=== PATIENT | female | born 1945 | race Caucasian/White ===

== ENCOUNTER 2017-05-20 14:07 | Inpatient (IN) | payer MEDICARE, OTHER ==
[~2017-05-20] VITALS: Ht 165.1 cm; Wt 67.4 kg
--- NOTE | ~2017-05-20 | TH ---
Unit #: [id number] #: [id number] Patient: MAINE MOREL [id number] [address] [address] [id number] I MR#: [id number] NAME: MAINE MOREL. : 1945 SEX: F STUDY DATE/TIME: 05/23/2017 UNIT: C3A PCU ROOM: [facility] STUDY DESCRIPTION: Lexiscan stress test - Nuclear Attending Physician: Kassandra Woods M.D. Primary Care Physician: Kassandra Woods M.D. CARDIOLOGY REPORT PROCEDURE PERFORMED Lexiscan Cardiolite stress test - Nuclear portion. PROCEDURE Using technetium 99m-labeled Cardiolite, rest and stress SPECT images were obtained. Multiple SPECT images were obtained in various views, including horizontal and vertical long axis and short axis views of the left ventricle. Images were obtained by gated SPECT method. The patient was administered 11.09 mCi of Cardiolite at rest. The patient was administered 33.1 mCi of Cardiolite after Lexiscan infusion was completed. On the stress images, there is mildly decreased tracer uptake activity in the anteroapical wall. The rest images show a smaller area of mildly decreased tracer uptake activity anteroapically. Comparing the rest and stress images, a very small area of possible stress-induced ischemia involving the anteroapical wall of the left ventricle cannot be ruled out. The left ventricular ejection fraction is calculated to be 45%. There is mild global hypokinesis seen. The left ventricular cavity is mildly dilated both at rest and post stress. CONCLUSION 1. An extremely small area of possible stress-induced ischemia involving the anteroapical wall of the left ventricle cannot be ruled out. 2. The left ventricular ejection fraction is calculated to be 45%. 3. There is mild global hypokinesis seen. 4. The left ventricular cavity is mildly dilated both at rest and post stress. 5. Mildly abnormal Lexiscan Cardiolite stress test. Clinical correlation is requested. Dictated by.Sandy Rockwell TD: 05/23/2017 16:20 JOB #: [id number] Unit #: [id number] #: [id number] Patient: MAINE MOREL CARDIOLOGY REPORT Page 1 of 1 X Tracy Lewis MD <ELECTRONICALLY SIGNED> 07/10/17 1524 CARDIOLOGY REPORT
--- NOTE | ~2017-05-20 | EKG ---
PATIENT: MAINE MOREL UNIT #: [id number] Ventricular Rate: 94 BPM Atrial Rate: 94 BPM P-R Interval: 166 ms QRS Duration: 98 ms Q-T Interval: 394 ms QTC Calculation(Bezet): 492 ms P Eddy: 68 degrees Calculated R Eddy: 53 degrees Calculated T Eddy: 59 degrees Diagnosis Line: Normal sinus rhythm Diagnosis Line: Prolonged QT Diagnosis Line: Abnormal ECG Diagnosis Line: When compared with ECG of 06-JAN-2016 16:14, Diagnosis Line: Premature atrial complexes are no longer Present Diagnosis Line: Vent. rate has increased BY 32 BPM Diagnosis Line: Confirmed by LEENA CHAVES MD ([id number]) on 05/21/2017 Diagnosis Line: 7:38:00 PM INTERPRETING MD: ANDIE BARRIENTOS
--- NOTE | ~2017-05-20 | CO ---
Unit #: [id number] #: [id number] Patient: MAINE MOREL [id number] [address] [place], [place] [address] [id number] I MR#: [id number] NAME: MAINE MOREL. ROOM: 327 Age: 71 Sex: F Admission Date: 05/20/2017 : 1945 Attending Physician: Kassandra Woods M.D. Primary Care Physician: Kassandra Woods M.D. Consultation Date: 05/22/2017 CONSULTATION REPORT REASON FOR CONSULT Hypoxia. HISTORY OF PRESENT ILLNESS This is a very pleasant, 71-year-old, female with past medical history significant for alcohol abuse, COPD, hypertension, and diabetes who presented to the emergency room with chest pain and shortness of breath for a few days. Also, she admitted a cough that was nonproductive. Patient stated that she uses several pillows when she sleeps at night and her shortness of breath, also, on exertion even for short distances. PAST MEDICAL HISTORY 1. Hypertension. 2. Diabetes. PAST SURGICAL HISTORY None. HOME MEDICATIONS 1. Levemir. 2. Cozaar. 3. Paxil. ALLERGIES No known drug allergies. SOCIAL HISTORY Patient admits to drinking on a daily basis with 2-3 beers and 2-3 shots of vodka. She is an active smoker with at least one pack per day. No history of drug abuse. FAMILY HISTORY Unremarkable. REVIEW OF SYSTEMS Twelve-point review of systems were obtained and were negative, except for what was mentioned in the HPI. PHYSICAL EXAMINATION GENERAL: The patient is in no acute distress. VITAL SIGNS: Blood pressure 156/68, respiratory rate 17, and O2 saturation 98% on 2 liters nasal cannula. HEENT: Atraumatic and normocephalic. PERRLA. EOMI. NECK: Supple. No JVD. No lymphadenopathy. Unit #: [id number] #: [id number] Patient: MAINE MOREL CHEST: Bilateral crackles and wheezing. HEART: S1 and S2. No murmurs, gallops, or rubs. ABDOMEN: Soft and nontender. Bowel sounds are positive. No hepatosplenomegaly. EXTREMITIES: Trace edema. SKIN: No rashes. PEDIATRIC NP: Awake, alert, and oriented x3. No focal motor/sensory deficit. DIAGNOSTIC STUDIES LABS: Creatinine 0.7, sodium 136, and CO2 35. White blood count 9.2 and hemoglobin 14.6. IMAGING: Tests are reviewed and (1) . ASSESSMENT 1. Acute hypoxic respiratory failure. 2. Acute exacerbation of chronic obstructive pulmonary disease. 3. Acute systolic congestive heart failure. 4. Hypertension. 5. Diabetes. PLAN 1. Will titrate oxygen down to baseline, which is room air as tolerated. 2. Will continue IV Lasix and monitor urine output and creatinine very closely. 3. Will follow echo result. 4. Patient may need a stress test. 5. IV steroids and bronchodilator. 6. Will discontinue antibiotics and watch closely. 7. DVT prophylaxis. I would like to thank Dr. Mendez for allowing me to be part of this patient's care. Dictated by... Sandy Zapien TD: 05/23/2017 11:50 JOB #: [id number] CONSULTATION REPORT Page 1 of 1 X CANDI NAILS MD CONSULTATION REPORT
--- NOTE | ~2017-05-20 | CR63 ---
[facility] A Service of [facility] & [facility] RADIOLOGY TEXT RESULTS PATIENT: MAINE MOREL LOCATION: [facility] 327- : 43 UNIT #: [id number] AGE: [address]: Kassandra Woods MD SEX: F ORDER DR: [id number] [facility] [address] [place], [place] [address] [id number] I MR#: [id number] Acc #: [id number] NAME: MAINE MOREL. : 1945 SEX: F STUDY DATE/TIME: 05/20/2017 15:51 UNIT: [address] ROOM: [facility] STUDY DESCRIPTION: CR Chest 2 View Attending Physician: Kassandra Woods M.D. Ordering Physician: Ed Gabriel Pena M.D. Primary Care Physician: Kassandra Woods M.D. MEDICAL IMAGING REPORT This report is preliminary unless electronic signature is present EXAM PA and lateral chest. HISTORY Cough and congestion and shortness of air for 4 days. FINDINGS Two views of the chest demonstrate mild cardiac enlargement. Pulmonary vascularity is normal. Mild linear atelectasis or scarring in the left base. Small incidental calcified granuloma lateral left midlung. No airspace infiltrates or effusions. IMPRESSION 1. Kjcp-ea-covaavht cardiac enlargement. 2. No evidence of active disease. Dictated by... Juan Phoenix M.D. THIS IS AN ELECTRONICALLY VERIFIED REPORT Juan Phoenix M.D. at 05/21/2017 3:13 PM AKILAH/margarita TD: 05/20/2017 18:16 JOB #: [id number] MEDICAL IMAGING REPORT Page 1 of 1 COPY
--- NOTE | ~2017-05-20 | ST ---
Unit #: [id number] #: [id number] Patient: MAINE MOREL [id number] [facility]. [place], [place] [address] [id number] I MR#: [id number] NAME: MAINE MOREL. : 1945 SEX: F STUDY DATE/TIME: 05/23/2017 UNIT: C3A PCU ROOM: [facility] STUDY DESCRIPTION: Lexiscan Cardiolite stress Attending Physician: Kassandra Woods M.D. Primary Care Physician: Kassandra Woods M.D. CARDIOLOGY REPORT EXAM Lexiscan Cardiolite stress test. FINDINGS Baseline EKG: Normal sinus rhythm with ventricular rate 75 beats per minute, left atrial abnormality, Q wave in V1, poor R wave progression, and nonspecific ST-T wave abnormalities in lateral leads. Lexiscan is a 4-minute test with Lexiscan being injected within the first minute followed by Cardiolite. EKG during the test was equivocal to baseline and continued to show some nonspecific ST-T wave abnormalities in inferior leads. a rare premature atrial contraction. Maximum heart rate response was 97 beats per minute with maximum blood pressure response 135/62 mmHg. Patient had no complaints of chest pain, palpitations, or dizziness. Had increased shortness of breath and fatigue, which resolved in recovery phase. Cardiolite was injected after Lexiscan within the first minute of the test. Radionuclide test pending. Please correlate with nuclear images. Dictated by... Benita Shah A.P.R.N. for Sandy Barrios/vickey TD: 05/23/2017 11:34 JOB #: [id number] Unit #: [id number] #: [id number] Patient: MAINE MOREL CARDIOLOGY REPORT Page 1 of 1 X Benita Shah APRN CARDIOLOGY REPORT
--- NOTE | ~2017-05-20 | DS ---
Unit #: [id number] #: [id number] Patient: LIZETT CAZARES [id number] [address] [address] [id number] I MR#: [id number] NAME: LIZETT CAZARES. ROOM: 327 Age: 71 Sex: F Admission Date: 05/20/2017 : 1945 Discharge Date: 05/28/2017 Attending Physician: Kassandra Woods M.D. Primary Care Physician: Kassandra Woods M.D. DISCHARGE SUMMARY FINAL DIAGNOSES 1. Acute hypoxic respiratory failure. 2. Acute chronic obstructive pulmonary disease exacerbation. 3. Acute systolic congestive heart failure with ejection fraction of 20%. 4. Severe pulmonary hypertension. 5. Status post cath, which shows normal coronaries. 6. Severe mitral regurgitation. 7. Nonischemic cardiomyopathy. 8. Hypertension. 9. Hyperlipidemia. 10. Diabetes mellitus type 2. 11. Alcohol abuse. 12. Tobacco abuse. DISCHARGE MEDICATIONS 1. Nebulizer treatment with albuterol and ipratropium q.i.d. 2. Prednisone tapering dose. 3. Tylenol 650 q.4 p.r.n. 4. Paxil 40 mg daily. 5. Glucophage 1000 mg b.i.d. 6. Atorvastatin 80 mg nightly. 7. Nicotine patch 40 mg daily. 8. Lopressor 50 mg twice a day. 9. Furosemide 40 mg twice a day. 10. Losartan 50 mg twice a day. 11. Lantus 45 units subcutaneous daily. 12. Aspirin 81 mg daily. 13. Imdur ER 60 mg daily. 14. Folic acid 1 mg daily. 15. Thiamine 100 mg daily. CONSULTATIONS DURING HOSPITALIZATION 1. Dr. Toscano and Dr. Lewis from cardiology services. 2. Dr. Shore from pulmonary services. PROCEDURE PERFORMED DURING HOSPITALIZATION Cardiac cath which showed normal coronaries with ejection fraction of 20% and severe pulmonary hypertension with severe mitral regurgitation. DIAGNOSTIC STUDIES LABORATORY: Lab workup on discharge: Glucose is 257, sodium 145, potassium 4, chloride 95, BUN 29, creatinine 0.9. BNP 204. CBC shows WBC 11.7, hemoglobin 13.3, hematocrit 41.3, and platelet count 290,000. Unit #: [id number] #: [id number] Patient: LIZETT CAZARES HOSPITAL COURSE Ms. Lizett Cazares is a 71-year-old female, who was admitted to the hospital on May 21 by my colleague, Dr. Mendez, with shortness of breath. Patient was diagnosed with acute new-onset congestive heart failure and acute COPD exacerbation. Patient was treated with IV Solu-Medrol and Mini neb treatment. Patient does have hypoxic respiratory failure. Home O2 is being arranged. That needs to be continued as outpatient. Patient was seen by Dr. Gonzalez and Dr. Miguel Shore during hospitalization. Patient's acute congestive heart failure was treated with IV diuretics. Dr. Toscano was consulted. Patient had a cardiac cath done and findings are as above. Patient is very high risk for mitral valve repair or replacement because of her severe pulmonary hypertension, also because of severe COPD. Cardiac medications were adjusted as per Dr. Toscano's recommendation. Tobacco cessation counseling has been done. Alcohol cessation counseling has been done. PHYSICAL EXAMINATION On discharge: VITAL SIGNS: Blood pressure 177/62, respiratory rate 20, pulse rate is 63, and temperature is 98. HEENT: Head is normocephalic. CHEST: Clear to auscultate. Decreased breath sounds in the bases. CARDIOVASCULAR: S1, S2 positive. Murmur is heard. ABDOMEN: Soft. EXTREMITIES: Edema is present. DISCHARGE INSTRUCTIONS 1. The patient is being discharged home in stable condition. 2. Follow primary care provider in one week. 3. CBC and BMP in one week. 4. Followup with Dr. Toscano on July 10, 2017 at 2:15 p.m. 5. Tobacco cessation counseling done. 6. An 1800 mL fluid restriction. Dictated by... Sandy Saenz TD: 05/30/2017 09:29 JOB #: [id number] DISCHARGE SUMMARY Page 1 of 1 X Carmela Rojas MD X DISCHARGE SUMMARY
--- NOTE | ~2017-05-20 | HP ---
Unit #: [id number] #: [id number] Patient: MAINE MOREL [id number] [address] [place], [place] [address] [id number] I MR#: [id number] NAME: MAINE MOREL. ROOM: 327 Age: 71 Sex: F Admission Date: 05/20/2017 : 1945 Attending Physician: Kassandra Woods M.D. Primary Care Physician: Kassandra Woods M.D. HISTORY AND PHYSICAL ADMISSION DIAGNOSES 1. Shortness of air and dyspnea. 2. Questionable new-onset of acute congestive heart failure. 3. Chronic obstructive pulmonary disease. 4. Alcohol abuse. 5. Hypertension. 6. Insulin-dependent diabetes. HISTORY OF PRESENT ILLNESS Ms. Morel is a 71-year-old female, patient of Dr. Kassandra Woods, who presented to Dr. Woods's office yesterday with complaints of shortness of air and dyspnea. She was directly admitted. She denies any chest pain, denies any fever or chills, and denies any nausea, vomiting, diarrhea, or abdominal pain. She tells me that she cannot sleep flat. She uses several pillows to sit up during the night. (1) any nocturnal dyspnea or orthopnea. Otherwise, denies any syncopal episode. So a 12-point review of systems on this patient is basically negative except as above. PAST MEDICAL HISTORY 1. Hypertension. 2. Insulin-dependent diabetes. PAST SURGICAL HISTORY None. HOME MEDICATIONS 1. Levemir. 2. Cozaar. 3. Paxil. ALLERGIES No known drug allergies. SOCIAL HISTORY She admits drinking on a daily basis with two or three beers and two or three shots of vodka. She also is an active smoker and has been an active smoker all her life. Denies any illicit drug use. FAMILY HISTORY Unremarkable. PHYSICAL EXAMINATION GENERAL: Patient is a 71-year-old female in no acute distress. Unit #: [id number] #: [id number] Patient: MAINE MOREL VITAL SIGNS: Blood pressure 168/86, heart rate 74, respirations 20, and temperature 98.3. HEENT: Head is atraumatic. Pupils equal, round, and reactive to light and accommodation. Extraocular muscles intact. Oropharynx clear. NECK: Supple. No mass, no JVD, and no bruits. CHEST: Diminished bilaterally with expiratory wheezing. CARDIOVASCULAR: S1 and S2. No murmurs. ABDOMEN: Soft, nontender, and nondistended. LOWER EXTREMITIES: Without any significant cyanosis, clubbing, or edema. NEUROLOGIC: Grossly intact without any focal deficits. DIAGNOSTIC STUDIES LABORATORY: Chemistry significant for blood glucose of 273 and ALT of 42. White count 9.2 and hemoglobin and hematocrit 14 and 44. IMAGING: Chest x-ray shows cardiomegaly. No infiltrates. ASSESSMENT AND PLAN 1. Shortness of air and dyspnea likely congestive heart failure and questionable dilated alcohol-induced cardiomyopathy. Will start on low-dose of Lasix 20 mg IV daily, check the 2D echocardiogram, check cardiac enzymes, and consult Cardiology. 2. Chronic obstructive pulmonary disease with wheezing. Start on DuoNebs. Counseled on the importance of quitting tobacco. Ask Pulmonary to see. 3. Hypertension. Resume home medications. Again, added Lasix. 4. Insulin-dependent diabetes. Continue Levemir at medium sliding scale. Check hemoglobin A1c. 5. Gastrointestinal and deep venous thrombosis prophylaxis. Start on Protonix and Lovenox. 1. Dictated by Al Mendez M.D. OC/soledad TD: 05/21/2017 22:02 JOB #: [id number] HISTORY AND PHYSICAL Page 1 of 1 X Al Mendez MD X HISTORY AND PHYSICAL
--- NOTE | ~2017-05-20 | EKG ---
PATIENT: MAINE MOREL UNIT #: [id number] Ventricular Rate: 59 BPM Atrial Rate: 59 BPM P-R Interval: 152 ms QRS Duration: 102 ms Q-T Interval: 450 ms QTC Calculation(Bezet): 445 ms P [place]: 57 degrees Calculated R [place]: 64 degrees Calculated T [place]: 86 degrees Diagnosis Line: Sinus bradycardia Diagnosis Line: Otherwise normal ECG Diagnosis Line: When compared with ECG of 20-MAY-2017 14:28, Diagnosis Line: Vent. rate has decreased BY 35 BPM Diagnosis Line: Confirmed by LEENA CHAVES MD ([id number]) on 05/27/2017 Diagnosis Line: 11:36:35 PM INTERPRETING MD: ANDIE BARRIENTOS
--- NOTE | ~2017-05-20 | CO ---
Unit #: [id number] #: [id number] Patient: MAINE MOREL [id number] [address] [place], [place] [address] [id number] I MR#: [id number] NAME: MAINE MOREL. ROOM: 327 Age: 71 Sex: F Admission Date: 05/20/2017 : 1945 Attending Physician: Kassandra Woods M.D. Primary Care Physician: Kassandra Woods M.D. Consultation Date: 05/22/2017 CONSULTATION REPORT REASON FOR CONSULTATION Dyspnea. HISTORY OF PRESENT ILLNESS This is a 71-year-old white female, who went to her primary care physician's office because of shortness of breath and dyspnea. She says dyspnea has been ongoing for the past 1-month, but worsened in the last 2 weeks. Dyspnea occurs at rest and is worse on exertion. She has no report of chest pain. Has occasional palpitations, but no dizziness, syncope, or near syncope. She was admitted for further evaluation. From a cardiac standpoint, the patient has no prior cardiac history or workup. She has risk factors for ischemic heart disease that includes hypertension, insulin-dependent diabetes mellitus, and nicotine abuse. She also says she drinks at least 4 beers a night. Chest x-ray was absent of congestive heart failure. Troponin mildly elevated at 0.04, which is nondiagnostic. PAST MEDICAL HISTORY 1. Hypertension. 2. Insulin-dependent diabetes mellitus, type 2. 3. Nicotine abuse. 4. EtOH abuse. PAST SURGICAL HISTORY No previous surgeries. SOCIAL HISTORY The patient is . She smokes half a pack of cigarettes daily since she was in her 30s. She admits to drinking at least 4 beers a night. She denies illicit drug use. FAMILY HISTORY Negative for coronary artery disease. ALLERGIES No known drug allergies. HOME MEDICATIONS Paxil 40 mg daily, Glucophage 1000 mg b.i.d., Cozaar 50 mg daily, Lantus 35 units subcu daily. REVIEW OF SYSTEMS CONSTITUTIONAL: Negative for fever or chills. Has no weight gain or weight loss. Unit #: [id number] #: [id number] Patient: MAINE MOREL HEENT: No headache, hearing or vision changes, or difficulty with swallowing. No dizziness. CARDIOVASCULAR: Has no symptoms of angina. Reports occasional palpitations. Positive for paroxysmal nocturnal dyspnea and orthopnea. No syncope or near syncope. RESPIRATORY: Positive for dyspnea at rest and on exertion. Has occasional nonproductive cough. No hemoptysis. GASTROINTESTINAL: No abdominal pain, nausea, or vomiting. No constipation or melena. EXTREMITIES: Negative for lower extremity edema. PHYSICAL EXAMINATION VITAL SIGNS: Blood pressure is 156/70, heart rate 77, and temperature 97.9. BMI of 25. GENERAL: This is a pleasant 71-year-old white female, who is in no acute respiratory distress. NEUROLOGIC: She is awake, alert, and oriented. There are no focal weaknesses. NECK: Trachea is midline. No thyromegaly or lymphadenopathy. No jugular venous distention. HEART: S1 and S2. Heart sounds are normal. No murmurs. No rubs or clicks. Regular rate and rhythm. LUNGS: With diminished breath sounds in both lungs without rales, rhonchi, or wheezing. ABDOMEN: Soft and nontender with bowel sounds are present. EXTREMITIES: Without leg edema. SKIN: Warm and dry. DIAGNOSTIC STUDIES LABORATORY RESULTS: Glucose 233, BUN 16, creatinine 0.7, sodium 141, potassium 3.4. Troponin 0.03 and 0.05. White count 9.2, hemoglobin 14.6, hematocrit 44.4, and platelet count is 237. IMAGING STUDIES: Chest x-ray shows mild cardiomegaly, but no active disease. CARDIOVASCULAR STUDIES: EKG shows normal sinus rhythm with no acute ischemic changes. IMPRESSION 1. Acute exacerbation of bronchitis. 2. Acute chronic obstructive pulmonary disease. 3. Hypertension. 4. Diabetes mellitus, type 2. 5. Ethyl alcohol and nicotine abuse. PLAN 1. Agree with echocardiogram to evaluate left ventricular systolic function. 2. Has been started on a short course of steroids and antibiotics for COPD exacerbation. 3. Because of multiple risk factors for ischemic heart disease, we would advise the patient to undergo Lexiscan Cardiolite stress test in a.m. to rule out coronary artery disease. 4. Also I have asked the patient to stop nicotine and alcohol use. Thank you for allowing us to assist with this patient's care. Unit #: [id number] #: [id number] Patient: MARIA TERESAMAINE Karol Dictated by... Austen Novoa A.P.R.N. for Sandy Stark/eva TD: 05/29/2017 05:54 JOB #: [id number] CC: Kassandra Woods M.D. CONSULTATION REPORT Page 1 of 1 X Austen Novoa APRN X CONSULTATION REPORT
--- NOTE | ~2017-05-20 | US6 ---
[facility] A Service of [facility] & [facility] RADIOLOGY TEXT RESULTS PATIENT: MAINE MOREL LOCATION: [facility] 327-01 : 43 UNIT #: [id number] AGE: [address]: Kassandra Woods MD SEX: F ORDER DR: [id number] [facility] [address]. [place], [place] [address] [id number] I MR#: [id number] #: [id number] NAME: MAINE MOREL. : 1945 SEX: F STUDY DATE/TIME: 05/22/2017 7:32 UNIT: [address] ROOM: [facility] STUDY DESCRIPTION: US Abdominal Limited Attending Physician: Kassandra Woods M.D. Ordering Physician: Kassandra Woods M.D. Primary Care Physician: Kassandra Woods M.D. MEDICAL IMAGING REPORT This report is preliminary unless electronic signature is present EXAM Right upper quadrant abdominal ultrasound INDICATION Ascites PROCEDURE Ríos-scale imaging of the abdominal quadrants. COMPARISON None FINDINGS No ascites. Increased liver echotexture. IMPRESSION 1. No ascites. 2. Increased liver echotexture in keeping with steatosis. Dictated by... Shaan Schmitz M.D. THIS IS AN ELECTRONICALLY VERIFIED REPORT Shaan Schmitz M.D. at 05/26/2017 8:18 AM Lance TD: 05/22/2017 08:50 JOB #: [id number] MEDICAL IMAGING REPORT Page 1 of 1 COPY
[~2017-05-20 14:07] MED LIST: ALBUTEROL20 ml INH; ALLEGRA180 MG PO; ATORVASTATIN CA10 MG PO; CATAPRES0.1 MG PO; FLONASE 0.05% N16 G1; JANUMET 50-1,1 UDTAB PO; LANTUS SOLOSTAR3 ML SQ; LORTAB 5/500 TA1 TA1 PO; LOSARTAN POTASS50 MG PO; METFORMIN HCL1000 M1 PO; NEXIUM PO; PAROXETINE HCL20 M1 PO; PAROXETINE HCL40 M1 PO; PAXIL30 MG PO; PRINIVIL20 M1 PO; SAVELLA50 MG PO; SINGULAIR PO; WELCHOL625 MG PO
[2017-05-20 14:38] LABS: BASOPHIL% 0.5 % (0-2.5); EOSINOPHIL# 0.1 X10e3 (0-0.7); EOSINOPHIL% 0.8 % (0.0-7.0); HEMATOCRIT 44.4 % (35.0-45.0); HEMOGLOBIN 14.6 gm/dL (12.0-16.0); LYMPHOCYTE% 22.1 % (17.0-45.0); MEAN CELL VOLUME 90.6 FL (83-96); MEAN CORPUSCULAR HEMOGLOBIN 29.7 PG (28-34); MEAN CORPUSCULAR HGB CONC 32.8 g/dL (30-36); MEAN PLATELET VOLUME 7.8 FL (6.5-11.5); MONOCYTE# 0.5 X10e3 (0-1.0); MONOCYTE% 5.2 % (3.0-12.0); NEUTROPHIL# 6.6 X10e3 (1.5-7.1); NEUTROPHIL% 71.4 % (40-75); PLATELET COUNT 237 X10e3 (140-420); RED BLOOD COUNT 4.91 X10e (3.90-5.30); RED CELL DISTRIBUTION WIDTH 15.6 % (11.0-15.5); WHITE BLOOD COUNT 9.2 X10e3 (4.0-10.5)
[2017-05-20 14:45] LABS: DIFF IND NO
[2017-05-20 15:01] LABS: ALBUMIN SERUM 4.2 g/dL (3.5-5.0); BILIRUBIN, DIRECT 0.1 mg/dL (0.0-0.2); BILIRUBIN,INDIRECT 0.8 mg/dL (0.0-0.9); BILIRUBIN,TOTAL 0.9 mg/dL (0.2-2.0); CALCIUM SERUM 9.3 mg/dL (8.4-10.2); CREATININE SERUM 0.7 mg/dL (0.6-1.4); POTASSIUM 3.8 mmol/L (3.5-5.1); PROTEIN TOTAL SERUM 7.8 g/dL (6.0-8.3)
[2017-05-20] MEDS ORDERED: PAXIL40 MG PO (19:29)
[2017-05-20] MEDS ORDERED: LANTUS100 U/ML SUBQ (19:29)
[2017-05-20] MEDS ORDERED: COZAAR PO (19:29)
[2017-05-21] MEDS ORDERED: METFORMIN PO (11:07)
[2017-05-21 21:18] LABS: %MB 4.9 % (0.0-4.0); MB 4.7 ng/ml
[2017-05-22 03:10] LABS: ALBUMIN SERUM 3.6 g/dL (3.5-5.0); BILIRUBIN,TOTAL 0.7 mg/dL (0.2-2.0); BUN/CREATININE RATIO 22.85; CALCIUM SERUM 8.8 mg/dL (8.4-10.2); CREATININE SERUM 0.7 mg/dL (0.6-1.4); POTASSIUM 3.4 mmol/L (3.5-5.1); PROTEIN TOTAL SERUM 6.9 g/dL (6.0-8.3)
[2017-05-22 03:25] LABS: %MB 5.2 % (0.0-4.0); MB 4.3 ng/ml
[2017-05-22 12:18] LABS: CHOLESTEROL 271 mg/dL (0-200); HDL CHOLESTEROL 41 mg/dL (35-95); LDL/HDL RATIO 5 RATIO (0-4); TRIGLYCERIDES 134 mg/dL (10-160)
[2017-05-22 12:20] LABS: LDL CHOLESTEROL 203 mg/dL (-130)
[2017-05-23 05:33] LABS: HEMATOCRIT 40.1 % (35.0-45.0); HEMOGLOBIN 12.9 gm/dL (12.0-16.0); MEAN CELL VOLUME 90.8 FL (83-96); MEAN CORPUSCULAR HEMOGLOBIN 29.2 PG (28-34); MEAN CORPUSCULAR HGB CONC 32.1 g/dL (30-36); MEAN PLATELET VOLUME 8.3 FL (6.5-11.5); RED BLOOD COUNT 4.42 X10e (3.90-5.30); RED CELL DISTRIBUTION WIDTH 15.4 % (11.0-15.5); WHITE BLOOD COUNT 10.7 X10e3 (4.0-10.5)
[2017-05-23 06:09] LABS: BUN/CREATININE RATIO 26.25; CALCIUM SERUM 9.3 mg/dL (8.4-10.2); CREATININE SERUM 0.8 mg/dL (0.6-1.4); GLOM FILT RATE Estimated 73.2 mL/min (>60); POTASSIUM 4.3 mmol/L (3.5-5.1)
[2017-05-24 06:14] LABS: BUN/CREATININE RATIO 31.25; CALCIUM SERUM 9.1 mg/dL (8.4-10.2); CREATININE SERUM 0.8 mg/dL (0.6-1.4); GLOM FILT RATE Estimated 73.2 mL/min (>60); POTASSIUM 3.8 mmol/L (3.5-5.1)
[2017-05-26 05:48] LABS: PARTIAL THROMBOPLASTIN TIME 27.1 SECONDS (23.5-31.3); PROTHROMBIN TIME (PATIENT) 10.9 SECONDS (10.0-11.7)
[2017-05-26 06:05] LABS: HEMATOCRIT 41.3 % (35.0-45.0); HEMOGLOBIN 13.3 gm/dL (12.0-16.0); MEAN CELL VOLUME 91.8 FL (83-96); MEAN CORPUSCULAR HEMOGLOBIN 29.5 PG (28-34); MEAN CORPUSCULAR HGB CONC 32.1 g/dL (30-36); RED BLOOD COUNT 4.5 X10e (3.90-5.30); RED CELL DISTRIBUTION WIDTH 15.5 % (11.0-15.5); WHITE BLOOD COUNT 11.7 X10e3 (4.0-10.5)
[2017-05-26 06:08] LABS: BUN/CREATININE RATIO 41.42; CALCIUM SERUM 9.3 mg/dL (8.4-10.2); CREATININE SERUM 0.7 mg/dL (0.6-1.4); POTASSIUM 4.4 mmol/L (3.5-5.1)
[2017-05-28 07:16] LABS: BUN/CREATININE RATIO 32.22; CALCIUM SERUM 9.5 mg/dL (8.4-10.2); CREATININE SERUM 0.9 mg/dL (0.6-1.4); GLOM FILT RATE Estimated 63.5 mL/min (>60)
[2017-05-28] MEDS ORDERED: PREDNISONE10 M1 (16:23)
[2017-05-28] MEDS ORDERED: COMBIVENT U/D3 M3 INH (16:23)
[2017-05-28] MEDS ORDERED: ACETAMINOPHEN PO (16:25)
[2017-05-28] MEDS ORDERED: NICOTINE TRANSD14 MG TOP (16:26)
[2017-05-28] MEDS ORDERED: ATORVASTATIN CA80 MG PO (16:26)
[2017-05-28] MEDS ORDERED: LOPRESSOR PO (16:27)
[2017-05-28] MEDS ORDERED: LASIX PO (16:28)
[2017-05-28] MEDS ORDERED: LANTUS100 U/ML SUBQ (16:30)
[2017-05-28] MEDS ORDERED: ASPIRIN EC81 M1 PO (16:31)
[2017-05-28] MEDS ORDERED: IMDUR-ER60 M1 PO (16:34)
[2017-05-28] MEDS ORDERED: FOLIC ACID1 MG PO (16:34)
[2017-05-28] MEDS ORDERED: THIAMINE HCL100 MG PO (16:35)
== END 2017-05-28 18:43 | disposition home or self-care (01) | DRG 286 ==
LOC: CED 14:07 → C3A PCU 17:39 → CED 17:39 → C3A PCU 17:39
PROVIDERS: Hospitalist; Internal Medicine; Nurse Practitioner; Physician Assistant Medical
PROC: B24BYZZ Ultrasonography of Heart with Aorta using Other Contrast (ICD-10-PCS; principal; 2017-05-22)
PROC: 4A023N8 Measurement of Cardiac Sampling and Pressure, Bilateral, Percutaneous Approach (ICD-10-PCS; 2017-05-26)
PROC: B216YZZ Fluoroscopy of Right and Left Heart using Other Contrast (ICD-10-PCS; 2017-05-26)
PROC: B211YZZ Fluoroscopy of Multiple Coronary Arteries using Other Contrast (ICD-10-PCS; 2017-05-26)
PROC: B215YZZ Fluoroscopy of Left Heart using Other Contrast (ICD-10-PCS; 2017-05-26)
DX: I11.0 Hypertensive heart disease with heart failure (principal); J96.01 Acute respiratory failure with hypoxia; J44.1 Chronic obstructive pulmonary disease with (acute) exacerbation; J44.0 Chronic obstructive pulmonary disease with (acute) lower respiratory infection; J44.9 Chronic obstructive pulmonary disease, unspecified; Z79.4 Long term (current) use of insulin; F10.10 Alcohol abuse, uncomplicated; F17.210 Nicotine dependence, cigarettes, uncomplicated; J20.9 Acute bronchitis, unspecified; I50.21 Acute systolic (congestive) heart failure; E11.65 Type 2 diabetes mellitus with hyperglycemia; I27.2 Other secondary pulmonary hypertension; I34.0 Nonrheumatic mitral (valve) insufficiency; I42.9 Cardiomyopathy, unspecified
CPT/HCPCS: 71020; 76705; 78452; 80048; 80053; 80061; 80076; 82550; 82553; 82810; 82947; 83036; 83880; 84484; 85025; 85027; 85610; 85730; 93005; 93017; 93306; 94640; 94760; 99281; A9500; C1769; C1887; C1894; J1644; J1650; J1815; J1940; J1956; J2250; J2310; J2785; J2920; J2930; J3010